=== PATIENT | male | born 1940 | race Caucasian/White ===

== ENCOUNTER 2024-01-27 14:27 | Inpatient (IN) | payer MEDICARE, OTHER, SELFPAY ==
[2024-01-27] VITALS (9 sets, daily range): BP systolic 116–130; BP diastolic 64–90
[2024-01-27] MEDS: NSS 500 IV (10:33)
--- NOTE | 2024-01-27 10:43 | ED.GENMED ---
History of Present Illness
General
Chief Complaint: Change in Mental Status
Source: records
Exam Limitations: dementia
Time Seen by Provider: 01/27/24 10:18
History of Present Illness
History of Present Illness:
83-year-old male sent in for twitching and decreased alertness. Noted this morning. Patient is unable to add history. At baseline, he apparently ambulates and walks around and talks.
Past History
Past History
ED Past Medical History: HTN, Other (TIAs-recurring for past 20 yrs, DVT (?), Dementia), Other (BPH) and Other (OA, left orbital fracture); Negative Arrthythmia, CAD, COPD, Hypercholesterolemia or NIDDM
ED Past Surgical History: Orthopedic (L NAHOMI) and Other (Bilateral cataract surgeries, umbilical herniorrhaphy)
Social History
Tobacco: Former smoker
Alcohol: None
Personal:
Living: half-way
Employment: Retired
Family History
Family History: Other (reviewed and noncontributory)
Review of Systems
Review of Systems
Unable to obtain full review of systems at this time due to: dementia
All Other Systems: Not applicable
Phy Exam
Physical Exam
Physical Exam:
GENERAL: Lethargic. Eyes closed. Does respond to verbal stimuli however does not follow commands. Chronically ill-appearing elderly and frail.
EYE: Orbits normal.
NECK: Supple, no significant adenopathy.
ENT: Pharynx without erythema
CARDIAC: Regular rate and rhythm without any obvious murmurs.
LUNGS: Clear breath sounds,normal
ABDOMEN: Soft, without focal tenderness or distention
NEUROLOGICAL: Alert. Grossly nonfocal but does not follow commands
SKIN: Warm and dry, no rash or lesion, no discoloration, skin intact.
MUSCULOSKELETAL: No edema,no deformity.Good color
Course
Orders/Labs/Results
Orders:
Orders
01/27/24 10:22
Electrocardiogram (*1) Stat
Reason for Study: Other
Other Reason for Exam: pneumonia
CT Head W/o Iv Contrast Urgent
Comment:
Reason For Exam: Change in mental status
EKG- Treatment ONCE
IV Insert/Care/Rem.- Treatment PRN
0.9% Sodium Chloride 500 ml [Nss] 500 ml IV BOLUS
Pulse Ox/cont/shift [RESP] Stat
Quantity: 1
01/27/24 10:23
CR Chest - 2 Views Urgent
Comment:
Reason For Exam: cough
01/27/24 10:29
Basic Metabolic Panel Urgent
COVID-19 Antigen Urgent
Source: Nasal Swab
Complete Blood Count/With Diff Urgent
Influenza A+B Rapid Molecular Urgent
RUTHANN Source: Nasal Swab
Specimen Description:
01/27/24 10:30
Urinalysis Reflex To Culture Urgent
Date Specimen was Collected: 01/27/24
Time Specimen was Collected: 10:29
01/27/24 11:29
Levetiracetam Injectable [Keppra] 1,000 mg IV NOW STA
Abnormal Lab Results
01/27/24 01/27/24
10:29 10:30
RBC 4.66 L 10^6/uL
(4.70-6.10)
Absolute Neuts (auto) 9.4 H 10^3/uL
(1.4-6.5)
Absolute Lymphs (auto) 1.0 L 10^3/uL
(1.2-3.4)
Neutrophils % 86.7 H %
(42.2-75.2)
Lymphocytes % 9.1 L %
(20.5-51.1)
Glucose 133 H mg/dl
(70-99)
Urine Ketones Trace A
(Negative)
01/27/24 10:29
01/27/24 10:29
Vital Signs
Initial and Last Documented VS:
Initial Vital Signs
Pulse Resp
83 24
01/27/24 10:20 01/27/24 10:20
Last Documented Vital Signs
Temp Pulse Resp BP Pulse Ox
99.8 F 84 23 124/90 79
01/27/24 10:39 01/27/24 11:15 01/27/24 11:15 01/27/24 11:00 01/27/24 10:54
MDM/Problems Addressed
Differential Diagnosis Includes:
Patient with lethargy slight cough nondescript tremors. Multiple etiologies including primary neurologic issue, unlikely, infection. Workup in progress, electrolyte issue, workup in progress.
*Radiology
Radiology exam reviewed: radiology read reviewed
*Pulse Oximetry
Patient hypoxic: no
Comment: Acute right-sided intraparenchymal hemorrhage. Some mass effect
*EKG
Interpretation: normal
Comparison EKG: no changes
Heart Rate: 70
Rate: normal
Rhythm: sinus
Vernal: normal axis
Interval: normal interval
QRS Pattern: normal QRS
Ischemia: no ischemia
*Heat And Frost Insulator Helper Interpretation
Rate: normal
Interpretation: normal
Heart Rate: 72
Rhythm: sinus
*Critical Care Note
Total Time (30-74mins, 75-104mins- exclusive of procedures): 15
Data Reviewed
Review of Other/Old Records Reveals: Labs, Records and Testing
Update Note
Update Note:
Multiple discussions with family, daughter, patient's sister who is the power of city attorney. Nonaggressive treatment. They aware that this could lead to his demise. They are interested in hospice care.
ED Attending Note
-
Portions of this chart may have been created with voice recognition software.� Occasional wrong word or��sound alike� substitutions may have occurred due to the inherent limitations of voice recognition software.
Discharge Plan
Departure
Patient Disposition: Admit
Date of Disposition: 01/27/24
Time of Disposition: :
Presentation/result/management discussed w/ accepting MD/DO: Hospitalist
Discharge Problem:
Intraparenchymal hemorrhage
Prescriptions:
No Action
tamsulosin 0.4 MG capsule
0.4 mg PO DAILY
amlodipine 5 MG tablet
5 mg PO DAILY
donepezil 5 mg Tablet
10 mg PO HS
bupropion HCl 75 mg Tablet
150 mg PO DAILY
quetiapine [Seroquel] 25 mg Tablet
25 mg PO HS
Referrals:
Janine Rogers CRNP [Family Provider] -
Interventions
Interventions:
*Risk Screen - Suicide Last Done: 01/27/24 10:39
*General Assessment Last Done: 01/27/24 10:39
*Neglect/Abuse Screening Last Done: 01/27/24 10:39
ED- Fall Risk Assessment Last Done: 01/27/24 10:39
*ED COVID-19 Vaccine History Last Done: 01/27/24 10:39
ED- Neurological Assessment Last Done: 01/27/24 10:39
ED Swallowing Screen Last Done: 01/27/24 10:40
Discharge Date and Time
Print Language: CROATIAN
[2024-01-27 10:47] LABS: % Basophils 0.4 % (0-2); % Eosinophils 0.1 % (0-6); % Immature Granulocytes 0.4 % (0-0.5); % Lymphocytes 9.1 % (20.5-51.1); % Monocytes 3.3 % (1.7-9.3); % Neutrophils 86.7 % (42.2-75.2); Absolute Monocytes 0.4 10^3/uL (0.1-0.6); Absolute Neutrophils 9.4 10^3/uL (1.4-6.5); Hematocrit 42.7 % (39.0-52.0); Hemoglobin 14.3 g/dL (13.0-18.0); Mean Corp Hgb Conc. 33.5 g/dL (33.0-37.0); Mean Corpuscular Hgb 30.7 pg (27.0-31.0); Mean Corpuscular Volume 91.6 fL (80.0-94.0); Mean Platelet Volume 9.8 fL (7.4-10.4); Nucleated Red Blood Cells % 0 % (-); Platelet Count 243 10^3/uL (130-400); Red Blood Cell Count 4.66 10^6/uL (4.70-6.10); Red Cell Dist. Width 12.2 % (11.5-14.5); White Blood Cell Count 10.8 10^3/uL (4.8-10.8)
[2024-01-27 10:51] LABS: Urine Albumin Negative (Neg - Trace); Urine Bilirubin Negative (Negative); Urine Character Clear (Clear); Urine Color Yellow; Urine Glucose Negative (Negative); Urine Ketone Trace (Negative); Urine Leukocyte Negative (Negative); Urine Nitrite Negative (Negative); Urine Occult Blood Negative (Negative); Urine Urobilinogen 1+ (Neg - 1+)
[2024-01-27 11:01] LABS: Blood Urea Nitrogen 15 mg/dl (9-20); Calcium 9.1 mg/dl (8.4-10.2); Carbon Dioxide 25 mmol/L (22-30); Chloride 103 mmol/L (98-107); Glucose 133 mg/dl (70-99); Sodium 141 mmol/L (135-145); eGFR > 60.00
[2024-01-27 11:03] LABS: COVID-19 Antigen Negative (Negative)
[2024-01-27] MEDS: KEPPRA 1000 MG IV (11:34)
--- NOTE | 2024-01-27 12:51 | HPS.HSE ---
Addendum entered and electronically signed by Jayden Sung MD 02/04/24 11:27:
Concern for brain compression due to intraparenchymal hemorrhage
Addendum entered and electronically signed by Jayden Sung MD 01/27/24 17:56:
I also called patient's sister Dorothy Gonzalez just a short while ago, and updated her on patient's repeat CT scan results. She acknowledged understanding of Comfort Care and that Comfort Care meant not treating the intraparenchymal hemorrhage either
medically or surgically.
Addendum entered and electronically signed by Jayden Sung MD 01/27/24 17:12:
During physical exam, patient did not open his eyes even to pain stimulus, said some incomprehensible sounds (and some inappropriate words), and made slight movement to pain. Case discussed with on-call neurosurgeon, and patient's poor prognosis
noted.
Original Note:
Family Physician
-
Family Physician: DARWIN Kennedy
Chief Complaint
-
Decreased level of alertness and twitching
History of Present Illness
83 y/o male with past medical history of hypertension, orthostatic hypotension, hyperlipidemia, TIA's, SAH in 2017, BPH, Bilateral Hydrocele, movement disorder, ?DVT?, and vascular dementia (no Alzheimer's Disease, per patient' daughter Mariposa),
presented with somnolence/sleeping since last night. Patient was at his baseline (i.e. ambulating, participating in activities, etc.) up until last night, and he went to sleep. Per patient's daughter Mariposa, he usually wakes up in the middle of
the night to urinate, but Mariposa noted that patient's Depends pads were soaked with urine from overnight, which meant he had not gotten up to go to the bathroom. Mariposa confirmed to me that patient's wishes were for no aggressive care or
treatment, and she confirmed that she would like patient to be comfort care, and she also confirmed patient's sister would like patient to be Comfort Care.
Medical History
Past Medical History
Past Medical History: Reports Other (As per HPI above)
Past Surgical History: Reports Orthopedic (L NAHOMI) and Other (Bilateral cataract surgeries, umbilical herniorrhaphy)
Social History
Tobacco: Former Smoker
Alcohol: None
Drug: None
Family History
Family History: Not pertinent
Allergies / Home Medications
Allergies reflects when Allergies were last updated in [employer].
Home Medications with original date entered in [employer]
Allergy/Medication List:
Allergies
Allergy/AdvReac Type Severity Reaction Status Date / Time
No Known Allergies Allergy Verified 12/03/21 06:24
Home Medications
tamsulosin 0.4 mg capsule 0.4 mg PO DAILY Urinary issue 02/02/17
amlodipine 5 mg tablet 5 mg PO DAILY Blood pressure 10/01/18
bupropion HCl 75 mg tablet 150 mg PO DAILY 08/30/21
donepezil 5 mg tablet 10 mg PO HS 08/30/21
quetiapine 25 mg tablet (Seroquel) 25 mg PO HS 01/27/24
Review of Systems
-
Unable to obtain full review of systems at this time due to: Patient Non-verbal
Physical Exam
Vital Signs
Vital Signs
Temp Pulse Resp BP Pulse Ox
99.8 F 73 17 121/64 79
01/27/24 10:39 01/27/24 12:45 01/27/24 12:45 01/27/24 12:00 01/27/24 10:54
Physical Exam
General: No Apparent Distress
HEENT: NormoCephalic
Respiratory: Other (Equal air entry bilaterally)
Cardiac: S1/S2 and Regular Rhythm
GI: Soft, Non Tender and Normal Bowel Sounds
Musculoskeletal: No Cyanosis and No Edema
Skin: Warm and Dry
Neuro: Other (Lethargic, unarousable)
Laboratory Results
-
01/27/24 10:29
01/27/24 10:29
Impression/Plan
-
CT Head (without IV contrast), as per radiologist's report:
'IMPRESSION:
Acute right-sided intraparenchymal hemorrhage involving the right lentiform nucleus, caudate lobe and and extension into the right lateral ventricle. Associated mass effect of the right lateral ventricle. New.
Mild atrophy. Progressed.
Mild periventricular small vessel ischemic disease. Progressed.'
Assessment/Plan
Intraparenchymal Hemorrhage
Presentation with decreased alertness and twitching
Acute Encephalopathy Secondary to Intraparenchymal Hemorrhage
-Per [place] Text communication between hospitalist team and ER provider, ER spoke to neurosurgery on-call physician and patient's family --> and they both agree with no aggressive, nonsurgical treatment, patient's daughter Mariposa confirmed that
patient would not want any aggressive management
-Patient's daughter Mariposa confirmed that patient is to be Comfort Care starting on admission; she also mentioned patient's sister is in agreement with patient being Comfort Care starting now. I explained Comfort Care, and how it meant we would
not continue routine home medications and give medications as needed for Comfort Care, no surgical interventions, and they are in agreement
-Mariposa requested that, although patient on Comfort Care, she would still like repeat neuroimaging to reassess Brain Bleed --> ordered CT Head for today around 4:20 pm
-Consulted neurosurgery who will contact the patient's family to answer their questions
Hypertension
Orthostatic hypotension
Hyperlipidemia
TIAs
SAH in 2017
BPH
Bilateral Hydrocele
Movement disorder
?DVT?
Vascular Dementia
Code Status: DNR (I confirmed this with patient's daughter Mariposa, at the time of admission)
--- NOTE | 2024-01-27 14:26 | W.PN.UPDATE ---
Update Note
Progress Note Update
Spoke with patients daughter
They do not wish for aggressive care. I explained his CT findings and prognosis. They wish to pursue hospice care.
Neurosurgery will sign off on this patient.
--- NOTE | 2024-01-27 14:37 | CM ---
Addendum entered by Eunice Alcazar 01/27/24 14:57:
Referral sent to [place] [facility] asking which specific hospice(s) they use and if they would be able to accept patient back.
Addendum entered by Eunice Alcazar 01/27/24 14:38:
Chart reviewed. CM introduced self and role. Patient's daughter also at bedside. Patient has an active doctor and PCP. He is independent for the most part. He was just recently discharged from PT services. He does need some assistance with
showering. He resides in the Memory Care unit. He is alert and able to toilet himself. He uses Depends. He owns a walker. No +SDOHs. He is retired. He was in the and worked for [employer] for 30 years.
ANTICIPATED DISCHARGE DISPO: [facility] with hospice services.
Original Note:
CM consult placed for hospice. Patient resides at [facility] in [place]. Will reach out to them to see if they have a specific hospice they work with.
[2024-01-27] MEDS: ATIVAN 2 MG IV (18:08)
[2024-01-27] MEDS: MORPHINE SULFATE 1 MG IV ×2 (18:08→21:48)
[2024-01-27] MEDS: NSS (PRESERVATIVE FREE) 1 ML IV (18:09)
[2024-01-27] MEDS: ROBINUL 0.2 MG IV (21:55)
[2024-01-28] MEDS: ATIVAN 2 MG IV ×2 (00:54→02:52)
[2024-01-28] MEDS: NSS (PRESERVATIVE FREE) 1 ML IV ×2 (00:54→02:52)
[2024-01-28] MEDS: MORPHINE SULFATE 1 MG IV ×3 (00:55→03:55)
--- NOTE | 2024-01-28 06:13 | W.PN.DEATH ---
Pronouncement of
-
Called to see patient to pronounce.
No spontaneous heart tones or respirations noted.
Patient not responsive to verbal stimuli.
Patient is pronounced .
Time of : 05:56
Date of : 01/28/24
Cause of : intraparenchymal hemorrhage
Family Notified: Yes (daughter criss. she will notify pt sister)
--- NOTE | 2024-01-28 06:28 | W.PN.UPDATE ---
Update Note
Progress Note Update
due to <23h from admission, patient care technician instructor notified.
spoke with dr tony childs. copy of admission history and physical faxed to show intraparenchymal hemorrhage was non traumatic in nature.
--- NOTE | 2024-01-28 07:55 | W.DCSUMMARY ---
Discharge Summary
Discharge Data
Date of Admission: 01/27/24
Date of Discharge: 01/28/24
Total time spent discharging patient (in min): 32
-
Pending Results: No
Hospital Course
83 y/o male with past medical history of hypertension, orthostatic hypotension, hyperlipidemia, TIA's, SAH in 2017, BPH, Bilateral Hydrocele, movement disorder, ?DVT?, and vascular dementia (no Alzheimer's Disease, per patient's daughter Mariposa),
presented with somnolence/sleeping. Patient was at his baseline (i.e. ambulating, participating in activities, etc.) up until the night before, and he went to sleep. On presentation to the hospital, patient did not open his eyes even to pain
stimulus, said some incomprehensible sounds (and some inappropriate words), and made slight movement to pain; he did have intraparenchymal hemorrhage including bleeding into ventricle, on neuroimaging, repeat neuroimaging showed a slightly larger
hemorrhage. Mariposa confirmed to me that patient's wishes were for no aggressive care or treatment, and she confirmed that she would like patient to be Comfort Care; patient's sister Dorothy Gonzalez was also in agreement that patient should be Comfort
Care. Neurosurgery was consulted and confirmed patient's poor prognosis. Patient on the morning of 01/28/24.
Discharge Plan
-
Patient Disposition:
Date/Time
Date/Time: 01/28/24 05:56
Discharge Date and Time
Discharge Date/Time: 01/28/24 05:56
Print Language: GREEK
--- NOTE | 2024-02-02 15:37 | PN.CDI ---
CDI
- -
CDI:
Physician Documentation Request
Admit Date: 01/27/24 14:27
Dear Doctor Pineda
Please review the following and provide your response in the progress notes.
Clinical Indicators:
Patient admitted on 01/26 with intraparenchymal hemorrhage and mental status change.
CT head shows: 'IMPRESSION: Acute right-sided intraparenchymal hemorrhage involving the right lentiform nucleus, caudate lobe and and extension into the right lateral ventricle. Associated mass effect of the right lateral ventricle. New.'
Pt with acute encephalopathy per Progress Notes
Pt with comfort care
Based on the above, could you clarify in the progress notes, the appropriate diagnosis, if significant, that supports the above findings on the CT head and the treatment provided
Brain compression due to intraparenchymal hemorrhage
Intraparenchymal hemorrhage only
Incidental finding
Other
Use of terms such as suspected, likely, concern for, or probable (associated with a specific diagnosis that is being evaluated, monitored, or treated as if it exists) are acceptable and can be coded in the inpatient setting, when documented at the
time of discharge.
Thank you,
America Ceja
CDI Specialist
Please use your independent medical judgment in providing your response.
== END 2024-01-28 05:56 | disposition expired | DRG 64 ==
LOC: 2 NORTH 14:27
PROVIDERS: ADMITTING PHYSICIAN Hospitalist; EMERGENCY PHYSICIAN Emergency Medicine; FAMILY PHYSICIAN Nurse Practitioner Adult Health
DX: I62.9 Nontraumatic intracranial hemorrhage, unspecified (principal); G93.5 Compression of brain; G93.40 Encephalopathy, unspecified; E11.36 Type 2 diabetes mellitus with diabetic cataract; F01.50 Vascular dementia, unspecified severity, without behavioral disturbance, psychotic disturbance, mood disturbance, and anxiety; E78.00 Pure hypercholesterolemia, unspecified; I10 Essential (primary) hypertension; I25.10 Atherosclerotic heart disease of native coronary artery without angina pectoris; N40.0 Benign prostatic hyperplasia without lower urinary tract symptoms; J44.9 Chronic obstructive pulmonary disease, unspecified; R25.3 Fasciculation; I95.1 Orthostatic hypotension; Z51.5 Encounter for palliative care; Z66 Do not resuscitate; Z86.73 Personal history of transient ischemic attack (TIA), and cerebral infarction without residual deficits; Z86.718 Personal history of other venous thrombosis and embolism; Z87.891 Personal history of nicotine dependence; Z11.52 Encounter for screening for COVID-19
CPT/HCPCS: 70450; 71045; 80048; 81003; 85025; 87070; 87502; 87811; 93005; 96361; 96374; 99285